=== PATIENT | female | born 2000 | race Caucasian/White ===

== ENCOUNTER 2024-11-29 18:09 | Emergency (ER) | payer BC ==
[~2024-11-29] VITALS: Ht 152.4 cm; Wt 68.0 kg
[2024-11-29 18:15] VITALS: O2SAT 99
[2024-11-29 20:34] LABS: BASOPHILS % 0.9 % (0.0-2.0); EOSINOPHILS % 1.5 % (0.0-5.0); HEMOGLOBIN. 14.7 g/dL (12.0-16.0); LYMPHOCYTES % 32.2 % (20.0-50.0); MEAN CORPUSCULAR HEMOGLOBIN 30.4 pg (28.0-32.0); MEAN CORPUSCULAR HGB CONC 34.2 g/dL (31.0-37.0); MEAN CORPUSCULAR VOLUME 88.8 fL (81.0-99.0); MONOCYTES % 5.6 % (2.0-8.0); NEUTROPHILS % 59.8 % (40.0-76.0); PLATELET 335 x1000/uL (130-400); RED BLOOD CELL COUNT 4.84 mill/uL (4.2-5.4); RED CELL DISTRIBUTION WIDTH 12.9 % (11.6-14.6); WHITE BLOOD COUNT 11.6 x1000/uL (4.5-11.0)
[2024-11-29 20:39] LABS: CHLORIDE 104 mEq/L (98-107); POTASSIUM 3.9 mEq/L (3.5-5.1); SODIUM 139 mEq/L (136-145)
[2024-11-29 20:40] LABS: CALCIUM 10.2 mg/dL (8.7-10.4); CARBON DIOXIDE 27 mEq/L (21-32)
[2024-11-29 20:45] LABS: CREATININE 0.8 mg/dL (0.6-1.0); GLUCOSE 110 mg/dL (70-105); UREA NITROGEN BLOOD 11 mg/dL (9-23)
[2024-11-29 20:47] LABS: ALANINE AMINOTRANSFERASE 23 IU/L (10-49); ASPARTATE AMINOTRANSFERASE 20 IU/L (<34); BILIRUBIN TOTAL 0.5 mg/dL (0.1-1.0)
[2024-11-29 20:51] LABS: HCG SCREEN NEGATIVE
[2024-11-29] MEDS ORDERED: MAG-55 MT (22:38)
[2024-11-29] MEDS ORDERED: FAMO-135 MT (22:38)
[2024-11-29 22:50] VITALS: BP 103/67; PULSE 87; RESP 18; TEMP 36.83628; O2SAT 99
== END 2024-11-29 22:50 | disposition home or self-care (01) ==
LOC: ER 18:09
DX: K82.4 Cholesterolosis of gallbladder (principal)
CPT/HCPCS: 36415; 76705; 80053; 84703; 85025; 99284

== ENCOUNTER 2025-09-30 18:46 | Emergency (ER) | payer BC ==
[~2025-09-30] VITALS: Ht 154.9 cm; Wt 66.0 kg
[~2025-09-30 18:46] MED LIST: FAMO-135 MT; MAG-55 MT
[2025-09-30 18:52] VITALS: O2SAT 100
[2025-09-30 20:30] LABS: BASOPHILS % 1.1 % (0.0-2.0); EOSINOPHILS % 2.0 % (0.0-5.0); HEMATOCRIT. 41.7 % (36.0-48.0); HEMOGLOBIN. 14.2 g/dL (12.0-16.0); LYMPHOCYTES % 38.3 % (20.0-50.0); MEAN PLATELET VOLUME 7.5 fl (7.4-10.4); MONOCYTES % 6.2 % (2.0-8.0); NEUTROPHILS % 52.4 % (40.0-76.0); PLATELET 287 x1000/uL (130-400); RED BLOOD CELL COUNT 4.73 mill/uL (4.2-5.4); RED CELL DISTRIBUTION WIDTH 13.2 % (11.6-14.6)
[2025-09-30 20:50] LABS: COLOR URINE YELLOW (YELLOW); GLUCOSE URINE NEGATIVE (NEGATIVE); KETONES URINE TRACE (NEGATIVE); LEUKOCYTE ESTERASE URINE NEGATIVE (NEGATIVE); NITRITE URINE NEGATIVE (NEGATIVE); OCCULT BLOOD URINE 2+ (NEGATIVE); PH URINE 6.5 (4.5-8.0); PROTEIN URINE NEGATIVE (NEGATIVE); SPECIFIC GRAVITY URINE 1.028 (1.005-1.030); UROBILINOGEN URINE 1.0 E.U./dL (0.2-1.0)
[2025-09-30 20:54] LABS: CREATININE 0.8 mg/dL (0.6-1.0)
[2025-09-30 20:55] LABS: UREA NITROGEN BLOOD 13 mg/dL (9-23)
[2025-09-30 20:56] LABS: ASPARTATE AMINOTRANSFERASE 16 IU/L (<34); TROPONIN I HIGH SENSITIVITY < 4 ng/L (3.0-34)
[2025-09-30 20:57] LABS: BILIRUBIN DIRECT 0.2 mg/dL (<=3.0); BILIRUBIN TOTAL 0.5 mg/dL (0.1-1.0); PROTEIN TOTAL 7.8 g/dL (6.0-8.3)
[2025-09-30 21:00] LABS: HCG SCREEN NEGATIVE
[2025-09-30] MEDS: MAGNESIUM/ALUMINUM HYDROXIDE/SIMETHICONE 30ML UDC PO ONE (21:00)
[2025-09-30] MEDS: VISCOUS LIDOCAINE 2% 15 ML UDC MM PRN (21:00)
[2025-09-30] MEDS: FAMOTIDINE 20MG TABLET PO ONE (21:01)
[2025-09-30] MEDS ORDERED: FAMO-135 MT (21:13)
[2025-09-30] MEDS ORDERED: MAG-55 MT (21:13)
[2025-09-30 21:28] VITALS: BP 113/79; PULSE 78; RESP 18; TEMP 36.9; O2SAT 98
[2025-09-30 21:32] LABS: RBC URINE 0-2 /hpf (0-2); WBC URINE 0-2 /hpf (0-2)
[2025-09-30 21:33] LABS: BACTERIA URINE 1+; CLARITY URINE HAZY (CLEAR); SQUAMOUS EPITHELIAL CELL URINE 1+ /lpf (RARE/1+)
== END 2025-09-30 21:37 | disposition home or self-care (01) ==
LOC: ER 18:46
DX: K21.9 Gastro-esophageal reflux disease without esophagitis (principal)
CPT/HCPCS: 36415; 76705; 80048; 80076; 81003; 84484; 84703; 85025; 99284